=== PATIENT | male | born 1990 | race African-American/Black ===

== ENCOUNTER 2024-08-26 12:41 | Emergency (ER) | payer SELFPAY ==
--- NOTE | ~2024-08-26 | XR_ITS ---
EXAMINATION: XR LUMBOSACRAL SPINE CLINICAL INFORMATION: back pain COMPARISON: None available. TECHNIQUE: Three views of the lumbosacral spine. FINDINGS: There are 5 lumbar segments with a vestigial rib on the right at L1. Vertebral body height and alignment is preserved. Disc spaces are preserved. XR/XR lumbar spine 2-3V IMPRESSION: Unremarkable lumbar spine. Electronically signed by: Garcia Pandey MD 08/26/2024 01:44 PM EDT
--- NOTE | ~2024-08-26 | XR_ITS ---
EXAMINATION: XR SACRUM AND COCCYX CLINICAL INFORMATION: back pain COMPARISON: None available. TECHNIQUE: 2 views of the sacrum and 2 views of the coccyx were obtained. FINDINGS: No acute fracture or deformity is identified. SI joints are symmetrical without degenerative changes. XR/XR sacrum coccyx min 2V IMPRESSION: Unremarkable examination. Electronically signed by: Garcia Pandey MD 08/26/2024 01:43 PM EDT
[2024-08-26 12:59] VITALS: BP 143/83; PULSE 106; RESP 18; TEMP 36.7; O2SAT 97; BMI 23.8
--- NOTE | 2024-08-26 13:03 | ED.GENADULT ---
HPI - General Adult General Chief complaint: Back Pain/Injury Stated complaint: back pain Time Seen by Provider: 08/26/24 13:44 Source: patient Mode of arrival: ambulatory Limitations: no limitations History of Present Illness ED Provider: Abhijeet Alvarado HPI narrative: 34 yold male presents to the ED for back patient that he tweaked two days ago while getting off the couch. Patient is a caparenter doing heavy lifting. Patient denies any recent trauma, IV drug use, or pmh of immunocomprimised diseases. Patient denies any urinary/bowel incontinence. Related Data Previous Rx's ?Medication ?Instructions ?Recorded cyclobenzaprine 10 mg tablet 10 mg PO BEDTIME PRN muscle spasm 08/26/24 #10 tabs ketorolac 10 mg tablet 10 mg PO QID PRN pain 5 days #20 08/26/24 tabs Allergies Allergy/AdvReac Type Severity Reaction Status Date / Time No Known Allergies Allergy Verified 08/26/24 13:02 Review of Systems Review of Systems: low back pain Yes all other systems are reviewed and are negative [facility] Social History Social History Smoked in Last 30 Days: No Use of substances other than those prescribed or required for medical reasons: No Advance Directives: No Advance Directives Information Provided: Yes Do you have a plan to hurt others: No Plan Physical Exam ED Vital Signs: Vital Signs - 24 hr 08/26/24 12:59 Temperature 98.0 F Pulse Rate 106 H Respiratory Rate 18 Blood Pressure 143/83 H Pulse Oximetry 97 Oxygen Delivery Method Room Air BMI result Body Mass Index 23.8 Const General: cooperative, healthy appearing, comfortable, no acute distress, well developed, alert, awake and Physically active Orientation/consciousness: patient oriented x3 HENMT Head: Yes normal to inspection, Yes No palpable skull fracture present, Yes normocephalic, Yes atraumatic and No abrasion Eyes General: appearance normal, both eyes and all related structures Neck Neck: Yes normal visual inspection, Yes full ROM, Yes no lymphadenopathy, Yes no meningeal signs, Yes trachea midline, Yes supple, No anterior neck swelling and No tender Chest Chest palpation & inspection: normal inspection of the chest and normal palpation of entire chest wall Resp Effort & Inspection: normal respiratory effort and able to speak in complete sentences Auscultation: clear to auscultation bilaterally Cardio Jugular venous distension: no JVD Heart sounds: S1 normal heart sound present and S2 normal heart sound present GI Inspection: Yes normal to inspection Palpation (GI): Soft to palpation, not firm, nontender, no guarding and not rigid General: Yes no CVA tenderness Back/Spine/Pelvis Back: no CVA tenderness and back tenderness (lumbar) Skin General skin exam: no rashes or lesions noted, elasticity normal and turgor normal Neuro General: patient oriented x3, gait normal, tone normal, moves all extremities, Normal light touch and pain sensation, no meningeal signs, no focal motor deficits, CN's II-XI intact bilaterally and normal sensation to monofilament Extrem General: Yes normal to inspection, Yes full ROM and Yes capillary refill normal Psych Appearance: grossly normal, well kempt and not disheveled Course Course Course Narrative: RME: 34-year-old male presents to ED for sodium back pain after getting out of bed for the past 2 days. Patient states pain 1st started after get off the couch. Patient does lab heavy lifting at work. Positive for lumbosacral spine tenderness on palpation. Negative flank pain. X-ray ordered. 3:02pm Medications Administered Discontinued Medications Generic Name Dose Route Start Last Admin Trade Name Freq PRN Reason Stop Dose Admin Ketorolac Tromethamine 30 mg 08/26/24 14:52 08/26/24 15:22 Ketorolac Tromethamine 30 Mg/Ml Vial IM 08/26/24 14:53 30 mg ONCE ONE Administration Medical Decision Making Medical Decision Making [facility] Narrative: 34-year-old male presents to ED for sodium back pain after getting out of bed for the past 2 days. Patient states pain 1st started after get off the couch. Patient does lab heavy lifting at work. Positive for lumbosacral spine tenderness on palpation. Negative flank pain. X-ray ordered. 3:02pm: X-ray is normal negative for fracture or arthritis. Patient will be discharged with pain meds and muscle relaxer. Not suspecting cauda equinus syndrome, epidural abscess, osteomyelitis, carotid dissection, aortic aneurysm,kidney stones, pylenoprhitis, or any other life-threatening etiology. Patient explained worrisome signs and informed to return to the ED immediately. Differential Diagnosis Differential Diagnoses: The differential diagnosis associated with the presentation includes (Back sprain muscle spasm) Lab Data [facility] Lab Attestation statement: I reviewed the patient's lab results. Independent Interpretation I performed an independent interpretation of an: Plain X-Ray Radiology Impression Discussion of test interpretation with radiology: I have reviewed the radiologist's reading. Independent Historian Clinical information obtained from an independent historian. History obtained from or confirmed by: Other (patient) Prescription Management I considered prescription management with: Pain Medication Discharge Plan Discharge Clinical Impression: Strain of lumbar region Patient Disposition: Home, Self-Care Instructions: Muscle Strain (ED), Low Back Strain (ED), P.R.I.C.E. Treatment (ED), Lower Back Exercises (ED) Additional Instructions: X-rays came back normal reassuring. Recommend follow up with primary care provider for possible physical therapy referral and MRI if no improvement in back pain. Return to the ED immediately for any urinary/bowel incontinence, abdominal pain, nausea, vomiting, paralysis tingling of lower extremities, fever, chills inability to walk, or any other concerning symptoms. Prescriptions: New ketorolac 10 mg tablet 10 mg PO QID PRN (Reason: pain) 5 Days Qty: 20 0RF Rx Instructions: Received 30 mg IM in the ED cyclobenzaprine 10 mg tablet 10 mg PO BEDTIME PRN (Reason: muscle spasm) Qty: 10 0RF Rx Instructions: side effect is drowsiness. Do not take at work or while driving. Stand Alone Forms: Work/School Release Interventions: ED Discharge Assessment Last Done: 08/26/24 15:39 Discharge Date/Time: 08/26/24 15:40 Print Language: Divehi
[2024-08-26 15:39] VITALS: BP 143/83; PULSE 106; RESP 18; TEMP 36.7; O2SAT 97
== END 2024-08-26 15:40 | disposition home or self-care (01) ==
PROVIDERS: Emergency Provider Emergency Medicine Emergency Medical Services
DX: S39.012A Strain of muscle, fascia and tendon of lower back, initial encounter (principal); X50.9XXA Other and unspecified overexertion or strenuous movements or postures, initial encounter; Y93.89 Activity, other specified; Y92.018 Other place in single-family (private) house as the place of occurrence of the external cause; Y99.9 Unspecified external cause status
CPT/HCPCS: 72100; 72220; 96372; 96374; 99284; J1885

== ENCOUNTER → 2024-08-26 13:02 | Outpatient (BNV) | payer SELFPAY | PROVIDERS: Emergency Provider Emergency Medicine Emergency Medical Services; Visit Provider Radiology Diagnostic Radiology | DX: M54.50 Low back pain, unspecified (principal) | CPT/HCPCS: 72100; 72220 ==